=== PATIENT | male | born 1985 | race Caucasian/White ===

== ENCOUNTER 2016-07-20 08:43 | Emergency (ER) | payer OTHER ==
[2016-07-20 08:47] VITALS: BP 144/91; PULSE 131; TEMP 98.1; BMI 27.1
[2016-07-20] MEDS ORDERED: IBUPROFEN 600 MG TABLET (FP) PO ONE (08:57)
[2016-07-20] MEDS ORDERED: IBUPROFEN 400 MG TABLET (FP) PO ONE (09:07)
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
== END 2016-07-20 10:21 | disposition home or self-care (01) ==
LOC: JERFT 08:43
PROC: 2W3QX1Z Immobilization of Right Lower Leg using Splint (ICD-10-PCS; principal; 2016-07-20)
DX: S89.91XA Unspecified injury of right lower leg, initial encounter (principal); W18.39XA Other fall on same level, initial encounter; Y35.891A Legal intervention involving other specified means, law enforcement official injured, initial encounter; Y92.9 Unspecified place or not applicable; Y99.0 Civilian activity done for income or pay
CPT/HCPCS: 73562-TC-RT; 99281-25

== ENCOUNTER 2017-03-22 10:56 | Emergency (ER) | payer OTHER ==
[2017-03-22 11:29] VITALS: BP 122/83; PULSE 82; TEMP 98.2; BMI 26.4
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
[2017-03-24 06:06] LABS: HBsAG SCREEN Negative (Negative); HEPATITIS B CORE ANTIBODY Negative (Negative)
== END 2017-03-22 13:38 | disposition home or self-care (01) ==
LOC: JERFT 10:56
DX: Z77.21 Contact with and (suspected) exposure to potentially hazardous body fluids (principal); Y35.891A Legal intervention involving other specified means, law enforcement official injured, initial encounter; Y93.89 Activity, other specified; Y92.89 Other specified places as the place of occurrence of the external cause; Y99.0 Civilian activity done for income or pay
CPT/HCPCS: 36415; 86704; 86803; 87340; 87389; 99281-25

== ENCOUNTER 2017-10-26 13:35 | Emergency (ER) | payer OTHER ==
[2017-10-26 13:41] VITALS: BP 130/89; PULSE 110; TEMP 97.9; BMI 26.4
[2017-10-26] MEDS ORDERED: IBUPROFEN 600 MG TABLET (FP) PO ONE ×2 (14:16→14:18)
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
== END 2017-10-26 14:47 | disposition home or self-care (01) ==
LOC: JERFT 13:35
DX: S83.8X1A Sprain of other specified parts of right knee, initial encounter (principal); Y35.891A Legal intervention involving other specified means, law enforcement official injured, initial encounter; Y92.9 Unspecified place or not applicable; Y93.9 Activity, unspecified; Z87.891 Personal history of nicotine dependence
CPT/HCPCS: 73564-TC-RT-FY; 99281-25

== ENCOUNTER 2018-04-20 11:57 | Emergency (ER) | payer OTHER ==
[2018-04-20 12:48] VITALS: BP 132/91; PULSE 111; TEMP 99.7; BMI 27.2
[2018-04-20] MEDS ORDERED: IBUPROFEN 600 MG TABLET (FP) PO ONE (13:55)
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
== END 2018-04-20 15:15 | disposition home or self-care (01) ==
LOC: JERFT 11:57
DX: M25.532 Pain in left wrist (principal); S63.502A Unspecified sprain of left wrist, initial encounter; Y35.891A Legal intervention involving other specified means, law enforcement official injured, initial encounter; Y93.9 Activity, unspecified; Y92.89 Other specified places as the place of occurrence of the external cause
CPT/HCPCS: 73110-TC-LT-FY; 73130-TC-LT-FY; 99281-25

== ENCOUNTER 2023-11-22 08:12 | Emergency (ER) | payer OTHER ==
[2023-11-22 08:17] VITALS: BP 144/99; TEMP 98.4; BMI 27.9
[2023-11-22] MEDS ORDERED: KETOROLAC TROMETHAMINE 30 MG/1 ML VIAL ONE (08:29)
[2023-11-22] MEDS ORDERED: METHOCARBAMOL 500 MG TABLET ONE (08:29)
[2023-11-22] MEDS ORDERED: LIDOCAINE 5% TOPICAL PATCH ONE (08:30)
[2023-11-22] MEDS: LIDOCAINE 5% TOPICAL PATCH TP ONE (08:42)
[2023-11-22] MEDS: KETOROLAC TROMETHAMINE 30 MG/1 ML VIAL IM ONE (08:42)
[2023-11-22] MEDS: METHOCARBAMOL 500 MG TABLET PO ONE (08:42)
[2023-11-22 09:41] VITALS: PULSE 85; RESP 16
[2023-11-22] MEDS ORDERED: LIDOCAINE PATCH REMOVAL MC SCH (22:00)
== END 2023-11-22 09:43 | disposition home or self-care (01) ==
LOC: FER 08:12
PROC: 3E0233Z Introduction of Anti-inflammatory into Muscle, Percutaneous Approach (ICD-10-PCS; principal; 2023-11-22)
DX: M54.50 Low back pain, unspecified (principal); X50.0XXA Overexertion from strenuous movement or load, initial encounter
CPT/HCPCS: 72100-TC-FY; 99284-25

== ENCOUNTER 2024-02-23 04:12 | Day surgery (SDC) | payer BC, OTHER ==
[2024-02-21 12:44] VITALS: BMI 29.4
[2024-02-23] MEDS ORDERED: DEXAMETHASONE SOD PHOSPHATE 10 MG/1 ML VIAL ONE ×2 (07:10→09:45)
[2024-02-23] MEDS ORDERED: LIDOCAINE HCL/PF 1% SDV 5ML VIAL ONE (07:10)
[2024-02-23] MEDS ORDERED: ACETAMINOPHEN 500 MG TABLET (FP) PO PRN (08:44)
[2024-02-23 09:29] VITALS: BP 118/85; PULSE 84; RESP 20; TEMP 98
[2024-02-23] MEDS: LIDOCAINE HCL 1% PRESERVATIVE FREE - 30ML VIAL IJ ONE ×2 (09:48)
[2024-02-23] MEDS: IOHEXOL 180 MG/1 ML ML IJ ONE ×2 (09:50)
[2024-02-23] MEDS: DEXAMETHASONE SOD PHOSPHATE 10 MG/1 ML VIAL IM ONE ×3 (09:52)
== END 2024-02-23 10:05 | disposition home or self-care (01) ==
LOC: JASU-SURG 04:12
PROVIDERS: ATTEND Pain Medicine Pain Medicine
PROC: 3E0R3BZ Introduction of Anesthetic Agent into Spinal Canal, Percutaneous Approach (ICD-10-PCS; 2024-02-23)
PROC: 3E0R33Z Introduction of Anti-inflammatory into Spinal Canal, Percutaneous Approach (ICD-10-PCS; principal; 2024-02-23 11:00)
DX: M54.16 Radiculopathy, lumbar region (principal)
CPT/HCPCS: 76000-TC-FY; J1100